=== PATIENT | female | born 1935 | race Caucasian/White ===

== ENCOUNTER 2016-08-14 07:52 | Inpatient (IN) ==
[2016-08-14] MEDS ORDERED: 0.9 % Sodium Chloride 500 ML IVC ONE (07:59)
--- NOTE | 2016-08-14 08:01 | Emergency Department Note ---
START Narrative - START START: I examined this patient and my medical decision-making was reviewed with the SPREADER/PA/Advanced Practice Nurse/Resident Physician. I agree with the documented findings, disposition and treatment plan as described except to the extent set forth below. ED attending note: Patient seen with emergency medicine resident Dr. Donnelly. Please see a copy of his note for details of the H&P, evaluation, management and disposition of this patient. We independently had [id number] contact with the patient Briefly: 80 -year-old female by EMS for "not feeling well. TODAY FOR THE Z-GERRY FOR "BRONCHITIS". PATIENT WAS SLIGHTLY HYPOXIC AT 88%, SHE IS A NONSMOKER. SHE APPEARS NONTOXIC BUT SLIGHTLY ILL. PATIENT GETTING OXYGEN BREATHING TREATMENTS IMAGING AND LAB WORK. DISPOSITION PENDING.
[2016-08-14 08:19] LABS: Basophils % 0.4 %; Eosinophils % 0.1 %; Hemoglobin 13.5 g/dL (11.5-15.4); Immature Granulocytes % 1.5 % (0-4); Lymphocytes # 1.1 K/mcL (0.6-4.6); Lymphocytes % 10.2 %; Mean Corpuscular HGB Conc 34.6 g/dL (31.6-35.5); Mean Corpuscular Hemoglobin 29.4 pg (28.0-33.3); Mean Platelet Volume 10.1 fL (9.4-12.4); Monocytes # 1.4 K/mcL (0.0-1.3); Monocytes % 13.3 %; Neutrophils # 8.1 K/mcL (1.6-8.9); Platelet Count 219 K/mcL (140-400); Red Blood Count 4.59 M/mcL (3.82-4.97); Red Cell Distribution Width 12.7 % (11.5-14.5); Segmented Neutrophils % 74.5 %
--- NOTE | 2016-08-14 08:20 | Emergency Department Note ---
Disposition Clinical Impression: Hypoxia, CAP (community acquired pneumonia) Disposition: Admitted As Inpatient Condition: Fair Referrals: Salo Sarabia Jr, MD [Primary Care Provider] - Forms: Work/School Release, ED Satisfaction Letter Time of Disposition: 11:00 SOB HPI - General Chief Complaint: ED General Medical Stated Complaint: "Don't feel well"/Loss of appetite Time Seen by Provider: 08/14/16 07:53 Source: patient Mode of arrival: EMS Limitations: no limitations Nursing Notes Reviewed: Yes Vital Signs Reviewed: Yes - History of Present Illness 80-year-old female with cough and congestion for 4 days, taking Zithromax and outpatient setting, slightly productive cough. Patient denies any chest pain, 60 out of 10, history of hypertension, hyperlipidemia. Patient is a nonsmoker, no history of COPD or asthma. Generally weak for the last few days, they did call EMS and have her on nasal cannula oxygen saturation was 89%. She denies chest pain abdominal pain, nausea vomiting, diarrhea, constipation. Pt Subjective Complaint: shortness of breath, cough Onset (ago): day(s) (4) Context: recent illness Severity: mild Consistency/Duration: intermittent Improves with: oxygen Worsens with: nothing Known history of: recurrent pneumonia Associated symptoms: Reports: fever, cough, sputum production. Denies: chest pain, pain with inspiration, orthopnea, lower extremity pain, palpitations Treatment prior to arrival: oxygen, other (IVF) Cough present: Yes Cough Description: Voluntary Cough Frequency: Intermittent Sputum production: Yes Sputum Amount: Scant Sputum Color: Clear - Related Data Allergies Allergy/AdvReac Type Severity Reaction Status Date / Time No Known Allergies Allergy Verified 08/14/16 08:02 All systems ED: reviewed and negative except as stated. Constitutional: Reports: as per HPI, fever, chills ENT ED: Reports: congestion. Denies: ear pain, throat pain Cardiovascular: Denies: chest pain, palpitations, dyspnea on exertion Respiratory: Reports: as per HPI, cough, dyspnea, sputum production. Denies: wheezes, hemoptysis, stridor Gastrointestinal: Denies: abdominal pain, nausea, vomiting Genitourinary: Denies: urgency, dysuria Musculoskeletal: Denies: back pain, neck pain Neurological: Denies: headache, weakness Past Medical History - Past Medical History Attestation: Yes The following information was validated with the patient. Source: patient Medical history: Reports: hyperlipidemia, hypertension Physical Exam Constitutional: Elderly female appears in no acute distress, ashen sat 91% on room air HEENT: NCAT, sclera anicteric, PERRLA bilaterally, normal external ears bilaterally, nasal septum nondeviated, average dentition, mucous membranes dry Neck: normal inspection, neck is supple, trachea midline Resp: Coarse breath sounds bilaterally,Right basilar rales CV: RRR, no m/g/r GI: normal inspection, Soft, NTND, BS present Back: normal inspection, no tenderness to palpation Skin: No rashes, skin warm, dry, intact Course Course Narrative: [id number] female suspect possible pneumonia or underlying infectious etiology cough and congestion for 4 days responsive to azithromycin, 2 view chestlabs fluids, reassess. - Reevaluation(s) Reevaluation #1: After ambulation the emergency department, the patient's oxygen saturation droppedon RA to 86% really making her short of breath, patient was placed back on 2 L nasal cannula her sats up to 93%. Given her hypoxia with ambulation, and she is not on oxygen at home and not a smoker or asthmatic, likely this is secondary to her pneumonia, her blood cultures lactate 90 in about X, paged Dr Madera Reevaluation #2: Dr Madera accepts patient for admission, will add a flu swab patient stable at time of ED admission. Time: 10:59 Vital Signs Temperature 97.5 F L 08/14/16 07:53 Pulse Rate 104 08/14/16 07:53 Respiratory Rate 18 08/14/16 07:53 Blood Pressure 185/95 08/14/16 07:53 O2 Sat by Pulse Oximetry 92 L 08/14/16 07:53 Temperature 97.5 F L 08/14/16 07:53 Pulse Rate 85 08/14/16 09:39 Respiratory Rate 18 08/14/16 09:39 Blood Pressure 201/91 08/14/16 09:39 O2 Sat by Pulse Oximetry 96 08/14/16 09:39 Oxygen Delivery Oxygen Delivery Room Air Shortness of Breath/Dyspnea - [facility] Narrative Medical decision making narrative: 80-year-old female admitted for hypoxia, community acquired pneumonia to hospitalist, in fair but stable condition on admission. - Differential Diagnosis Likely: acute exacerbation of chronic obstructive airways disease, congestive heart failure, pneumonia, pulmonary embolism - Medical Records Medical records reviewed: Yes I reviewed the patient's medical records. - Lab Data Lab results reviewed: Yes I reviewed the patient's lab results. Result diagrams: 08/14/16 08:10 08/14/16 08:10 Lab Results 08/14/16 08/14/16 08/14/16 Range/Units 08:10 08:10 08:10 WBC 10.8 (4.3-11.1) K/mcL RBC 4.59 (3.82-4.97) M/mcL Hgb 13.5 (11.5-15.4) g/dL Hct 39.0 (35.3-44.9) % MCV 85.0 (83.0-100.0) fL MCH 29.4 (28.0-33.3) pg MCHC 34.6 (31.6-35.5) g/dL RDW 12.7 (11.5-14.5) % Plt Count 219 (140-400) K/mcL MPV 10.1 (9.4-12.4) fL Immature Gran % 1.5 (0-4) % Seg Neutrophils % 74.5 % Lymphocytes % 10.2 % Monocytes % 13.3 % Eosinophils % 0.1 % Basophils % 0.4 % Neutrophils # 8.1 (1.6-8.9) K/mcL Lymphocytes # 1.1 (0.6-4.6) K/mcL Monocytes # 1.4 H (0.0-1.3) K/mcL Eosinophils # 0.0 (0.0-0.6) K/mcL Basophils # 0.0 (0.0-0.2) K/mcL Sodium 138 (136-145) mEq/L Potassium 3.5 (3.5-4.5) mEq/L Chloride 102 (98-109) mEq/L Carbon Dioxide 24 (19-29) mEq/L BUN 20 (7-20) mg/dL Creatinine 0.77 (0.57-1.11) mg/dL Est GFR ( Amer) > 60 (> 60) Est GFR (Non-Af Amer) > 60 (> 60) BUN/Creatinine Ratio 26 (6-26) Glucose 274 H (70-99) mg/dL Calculated Osmolality 298 (280-300) Calcium 8.8 (8.6-10.8) mg/dL Troponin I 0.03 (0-0.03) ng/mL B-Natriuretic Peptide (0-100) pg/mL 08/14/16 Range/Units 08:10 WBC (4.3-11.1) K/mcL RBC (3.82-4.97) M/mcL Hgb (11.5-15.4) g/dL Hct (35.3-44.9) % MCV (83.0-100.0) fL MCH (28.0-33.3) pg MCHC (31.6-35.5) g/dL RDW (11.5-14.5) % Plt Count (140-400) K/mcL MPV (9.4-12.4) fL Immature Gran % (0-4) % Seg Neutrophils % % Lymphocytes % % Monocytes % % Eosinophils % % Basophils % % Neutrophils # (1.6-8.9) K/mcL Lymphocytes # (0.6-4.6) K/mcL Monocytes # (0.0-1.3) K/mcL Eosinophils # (0.0-0.6) K/mcL Basophils # (0.0-0.2) K/mcL Sodium (136-145) mEq/L Potassium (3.5-4.5) mEq/L Chloride (98-109) mEq/L Carbon Dioxide (19-29) mEq/L BUN (7-20) mg/dL Creatinine (0.57-1.11) mg/dL Est GFR ( Amer) (> 60) Est GFR (Non-Af Amer) (> 60) BUN/Creatinine Ratio (6-26) Glucose (70-99) mg/dL Calculated Osmolality (280-300) Calcium (8.6-10.8) mg/dL Troponin I (0-0.03) ng/mL B-Natriuretic Peptide 126 H (0-100) pg/mL - Radiology Data Radiology results reviewed: Yes I reviewed the patient's radiology results. Chest X-Ray 08/14/16 07:59 IMPRESSION: Findings are compatible with given history of bronchitis. Findings suspicious for superimposed pneumonia at the right upper and lower lobes. Follow-up to resolution recommended. D/ / Tera Salas MD / Tera Salas MD Interpreting Provider: Tera Salas MD - EKG Data EKG attestation: Yes I reviewed and interpreted this EKG. EKG shows normal: Reports: sinus rhythm (87bpm [place] 182 QRS 79 QTc 407) Rate: Reports: normal Rhythm: Reports: NSR [place]/QRS: Reports: normal T wave inversions noted in: Reports: III
[2016-08-14] MEDS ORDERED: Ipratropium/Albuterol Neb 3 ML IH ONE (08:29)
[2016-08-14] MEDS ORDERED: methylPREDNISolone 125 MG/2 ML VIAL IVP ONE (08:30)
[2016-08-14 08:31] LABS: BUN/Creatinine Ratio 26 (6-26); Blood Urea Nitrogen 20 mg/dL (7-20); Calcium 8.8 mg/dL (8.6-10.8); Carbon Dioxide 24 mEq/L (19-29); Chloride 102 mEq/L (98-109); Glucose 274 mg/dL (70-99); Osmolality,Calculated 298 (280-300); Potassium 3.5 mEq/L (3.5-4.5); Sodium 138 mEq/L (136-145); eGFR For African Americans > 60 (> 60); eGFR For Non-African Americans > 60 (> 60)
[2016-08-14] MEDS ORDERED: Azithromycin 500 MG in D5% in Water 250 ML IVPB ONE (10:24)
[2016-08-14] MEDS ORDERED: Naloxone 0.4 MG/ML INJ IVP PRN (12:48)
[2016-08-14] MEDS ORDERED: Albuterol 2.5 MG/3 ML NEBULIZER IH PRN (12:54)
[2016-08-14] MEDS ORDERED: 0.9 % Sodium Chloride 1,000 ML IVC SCH (13:00)
--- NOTE | 2016-08-14 13:02 | Internal Med History&Physical ---
<Alex Madera - Last Filed: 08/14/16 20:09> Internal Medicine - H&P: HPI History of present illness: Ms. Guerrero is a 80 year old female Internal Medicine - H&P: Meds Aspirin [Lo-Dose Aspirin EC] 81 mg PO QPM 08/14/16 [History] Azithromycin [Azithromycin] 250 mg PO AD 08/14/16 [History] Benzonatate [Tessalon] 100 mg PO TID 08/14/16 [History] Biotin 2,500 mcg PO DAILY 08/14/16 [History] Glucosamine HCl/Chondr Fajardo A Na [Cvs Glucosamine-Chondr Tablet] 1 tab PO DAILY [History] Lisinopril/Hydrochlorothiazide [Lisinopril-Hctz 20-25 mg Tab] 1 tab PO DAILY 04/22 [History] Metoprolol XL (24 HR) Succ [Toprol XL] 50 mg PO DAILY 08/14/16 [History] Multivit-Min/Iron/Folic/Lutein [Centrum Silver Women Tablet] 1 tab PO DAILY 04/22 [History] Naproxen [Naproxen] 375 mg PO BID 08/14/16 [History] [place]-3/Dha/Epa/Fish Oil [Fish Oil 1,000 mg Softgel] 1,000 mg PO DAILY 08/14/16 [History] Allergies No Known Allergies Allergy (Verified 08/14/16 08:02) All Systems PM: A 10-system review of systems was performed and is negative for pertinent findings except as documented above in the HPI. - Constitutional Vitals: Temp Pulse Resp BP Pulse Ox 98.0 F 100 16 151/71 95 08/14/16 15:26 08/14/16 15:26 08/14/16 15:26 08/14/16 15:26 08/14/16 15:26 Internal Med - H&P Results - Labs CBC & Chem 7: 08/14/16 08:10 08/14/16 08:10 - Attending Attestation I examined this patient and my medical decision-making was reviewed with the METEOROLOGICAL EQUIPMENT REPAIRER/PA/Advanced Practice Nurse/Resident Physician. I agree with the documented findings, disposition and treatment plan as described except to the extent set forth below. Patient presented with weakness cough and shortness of breath. On exam she is in no acute distress. Heart is regular, lung exam reveals bilateral crackles and rhonchi. Abdomen is soft nontender nondistended Plan: Ceftriaxone and azithromycin for pneumonia, add Mucinex, inhaled albuterol. Continue home meds. <Andria Mcneal - Last Filed: 08/15/16 00:31> Date of Encounter: 08/14/16 Time of Encounter: 12:56 Assessment and Plan (1) CAP (community acquired pneumonia) Current visit: Yes Status: Acute Patient with productive cough, poor appetite, and SMITH. She is satting 86% on room air, improved to 93% on 2L. CXR is suspicious for pneumonia in right upper lobe and right lower lobe along with bronchitis. Ceftriaxone and Azithromycin IVPb daily titrate oxygen to maintain O2 sat > 92% duoneb treatments QID albuterol nebulizer Q2hr PRN IV fluids 0.9NS at 75mL/hr (2) Hypoxia Current visit: Yes Status: Acute Patient satting 86% on room air, improves to 93% on 2L. Secondary to Pneumonia and bronchitis Titrate oxygen to maintain O2 sat > 92% duoneb treatments QID Albuterol nebulizer Q2hr PRN (3) Hypertension Current visit: Yes Status: Acute Patient takes metoprolol and lisinopril/HCTZ at home. She reports she took her blood pressure this morning, but it has been running high since her arrival at 170s/80s-200s/100s. Hydralazine 10mg IVP Q6 hr PRN for SBP > 160 or DBP > 100 Qualifiers: Hypertension type: essential hypertension Qualified Code(s): I10 - Essential (primary) hypertension (4) Hyperglycemia Current visit: Yes Status: Acute Patient denies history of diabetes, but serum glucose was 274. Will get accuchecks and Hbg A1c. May need to initiate sliding scale coverage if blood sugar continues to run high. (5) Bronchitis Current visit: Yes Status: Acute Patient with productive cough, CXR suspicious for pneumonia in RUL and RLL and consistent with bronchitis. Patient given 125mg Solu medrol by ED. Mucinex BID duoneb treatments QID albuterol nebulizer Q2 PRN titrate O2 to maintain oxygen saturation > 92%. (6) DVT prophylaxis Current visit: Yes Status: Acute Ambulate with assistance anti-embolic stockings Lovenox 40mg SQ daily Internal Medicine - H&P: HPI Chief complaint: cough Admitted From: Emergency Dept Plans for Post Hospital Care: Home History of present illness: Ms. Guerrero is a 80 year old female with hypertension and hyperlipidemia who presented to the emergency department today with complaints of cough and congestion. She reports her symptoms started a week ago with a dry cough, the cough kept her up at night. She went to her primary care on Tuesday and was prescribed Zithromax for a diagnosis of bronchitis. She reports her cough started becoming productive of thick sputum, she had a poor appetite, she was fatigued, and short of breath on exertion, which is unusual for her. Her symptoms seem to be getting worse and so she presented to the emergency department this morning. She denies any fever, chills, sweats, body aches. She denies any chest pain, palpitations, headache. She denies any vomiting or diarrhea. Evaluation in the emergency department showed patient was satting 86 % on room air. Her sats improved to 93% on 2 L. blood pressure was elevated. Chest x-ray was suspicious for pneumonia in the right upper lobe and right lower lobe and was consistent with bronchitis. EKG showed normal sinus rhythm. White blood cell count was normal at 10.8. Troponin was normal at 0.03. There she denies a history of diabetes her blood sugar was elevated to 274. On exam patient is alert and oriented, in no acute distress. Heart has regular rate and rhythm. Her lungs had scattered rhonchi with expiratory coarse crackles. Past Med Surg Social Fam HX - Past Medical History Medical history: arthritis, hyperlipidemia, hypertension Psychiatric history: no psych history - Past Surgical History Surgical History: other (bladder sling) - Social History Smoking Status: Never smoker Smokeless Tobacco Status: No Alcohol use: rarely Drug use: none - Family History Father Living Status: Age at : 85 Cause of : [place] Hx Family Cardiac Disorders: Yes ([place]) Hx Family Endocrine Disorder: Yes (DM) Mother Living Status: Age at : 72 Cause of : CVA All Systems PM: A 10-system review of systems was performed and is negative for pertinent findings except as documented above in the HPI. - Constitutional Constitutional: fatigue, no chills, no fever(s), no night sweats - EENT Eyes: no change in vision, no discharge, no pain, no photophobia Ears: no ear discharge, no ear pain, no tinnitus Nose, mouth and throat: hoarseness, nasal congestion, post-nasal drip, no dysphagia, no nasal discharge, no neck pain, no sore throat - Cardiovascular Cardiovascular ROS IM: no chest pain, no diaphoresis, no dyspnea, no lightheadedness, no palpitations, no syncope - Respiratory Respiratory: cough, dyspnea on exertion, chest congestion, excessive phlegm production, change in phlegm color, no dyspnea, no wheezing - Gastrointestinal Gastrointestinal: no abdominal pain, no diarrhea, no hematemesis, no hematochezia, no melena, no nausea, no vomiting - Genitourinary Genitourinary: no change in urinary stream, no dysuria, no flank pain, no hematuria - Musculoskeletal Musculoskeletal ROS IM: no numbness, no tingling - Integumentary Integumentary IM: no rash, no unusual bruising - Neurological Neurological ROS: no confusion, no convulsions, no focal weakness, no numbness, no tingling, no tremor(s) - Hematologic/Lymphatic Hematologic/Lymphatic: no easy bruising - Constitutional Vitals: Temp Pulse Resp BP Pulse Ox 98.4 F 87 15 193/91 95 08/14/16 11:44 08/14/16 11:44 08/14/16 11:44 08/14/16 11:44 08/14/16 11:44 General appearance: Present: A&O X 3, pleasant, no acute distress - Head Head exam: Present: atraumatic, normocephalic - Eye Eye exam: Present: PERRL, conjuntiva pink, sclera anicteric Pupils: Present: PERRL - Neck Neck exam general surgery: Present: supple, trachea midline. Absent: lymphadenopathy - Respiratory Respiratory exam: Present: rales, rhonchi. Absent: accessory muscle use, wheezes - Cardiovascular Cardiovascular exam: Present: RRR, +S1, +S2. Absent: diastolic murmur, gallop, rubs, systolic murmur - GI/Abdominal GI/Abdominal exam: Present: normal bowel sounds, soft, no peritoneal signs. Absent: distended, tenderness - Extremities Exam Extremities exam: Present: warm, radial pulses palpable and symetrical. Absent : calf tenderness, cyanotic, pedal edema - Neurological Exam Neurological exam: Present: CN II-XII intact, oriented X3, no focal deficits. Absent: facial droop, speech deficit - Skin Skin exam: Present: dry, intact Internal Med - H&P Results - Labs CBC & Chem 7: 08/14/16 08:10 08/14/16 08:10 Labs: All Lab Results (24 Hours) 08/14/16 08/14/16 08/14/16 Range/Units 08:10 08:10 08:10 WBC 10.8 (4.3-11.1) K/mcL RBC 4.59 (3.82-4.97) M/mcL Hgb 13.5 (11.5-15.4) g/dL Hct 39.0 (35.3-44.9) % MCV 85.0 (83.0-100.0) fL MCH 29.4 (28.0-33.3) pg MCHC 34.6 (31.6-35.5) g/dL RDW 12.7 (11.5-14.5) % Plt Count 219 (140-400) K/mcL MPV 10.1 (9.4-12.4) fL Immature Gran % 1.5 (0-4) % Seg Neutrophils % 74.5 % Lymphocytes % 10.2 % Monocytes % 13.3 % Eosinophils % 0.1 % Basophils % 0.4 % Neutrophils # 8.1 (1.6-8.9) K/mcL Lymphocytes # 1.1 (0.6-4.6) K/mcL Monocytes # 1.4 H (0.0-1.3) K/mcL Eosinophils # 0.0 (0.0-0.6) K/mcL Basophils # 0.0 (0.0-0.2) K/mcL Sodium 138 (136-145) mEq/L Potassium 3.5 (3.5-4.5) mEq/L Chloride 102 (98-109) mEq/L Carbon Dioxide 24 (19-29) mEq/L BUN 20 (7-20) mg/dL Creatinine 0.77 (0.57-1.11) mg/dL Est GFR ( Amer) > 60 (> 60) Est GFR (Non-Af Amer) > 60 (> 60) BUN/Creatinine Ratio 26 (6-26) Glucose 274 H (70-99) mg/dL Calculated Osmolality 298 (280-300) Lactic Acid (0.5-2.2) mmol/L Calcium 8.8 (8.6-10.8) mg/dL Troponin I 0.03 (0-0.03) ng/mL B-Natriuretic Peptide (0-100) pg/mL 08/14/16 08/14/16 Range/Units 08:10 10:46 WBC (4.3-11.1) K/mcL RBC (3.82-4.97) M/mcL Hgb (11.5-15.4) g/dL Hct (35.3-44.9) % MCV (83.0-100.0) fL MCH (28.0-33.3) pg MCHC (31.6-35.5) g/dL RDW (11.5-14.5) % Plt Count (140-400) K/mcL MPV (9.4-12.4) fL Immature Gran % (0-4) % Seg Neutrophils % % Lymphocytes % % Monocytes % % Eosinophils % % Basophils % % Neutrophils # (1.6-8.9) K/mcL Lymphocytes # (0.6-4.6) K/mcL Monocytes # (0.0-1.3) K/mcL Eosinophils # (0.0-0.6) K/mcL Basophils # (0.0-0.2) K/mcL Sodium (136-145) mEq/L Potassium (3.5-4.5) mEq/L Chloride (98-109) mEq/L Carbon Dioxide (19-29) mEq/L BUN (7-20) mg/dL Creatinine (0.57-1.11) mg/dL Est GFR ( Amer) (> 60) Est GFR (Non-Af Amer) (> 60) BUN/Creatinine Ratio (6-26) Glucose (70-99) mg/dL Calculated Osmolality (280-300) Lactic Acid 1.6 (0.5-2.2) mmol/L Calcium (8.6-10.8) mg/dL Troponin I (0-0.03) ng/mL B-Natriuretic Peptide 126 H (0-100) pg/mL
[2016-08-14] MEDS: Azithromycin 500 MG in D5% in Water 250 ML IVPB SCH (13:17)
[2016-08-14 14:22] LABS: Hemoglobin A1C 7.3 %
[2016-08-14] MEDS ORDERED: *HR* Dextrose 50 % in Water (Syg) 50 ML SYRINGE IVP PRN (14:33)
[2016-08-14] MEDS ORDERED: Dextrose Gel 15 GM PO PRN ×2 (14:33)
[2016-08-14] MEDS ORDERED: D5% in Water 1,000 ML IV PRN (14:33)
[2016-08-14] MEDS: Ipratropium/Albuterol Neb 3 ML IH SCH ×3 (14:44→23:54)
[2016-08-14] MEDS ORDERED: Benzonatate 100 MG CAPSULE PO SCH (15:00)
[2016-08-14] MEDS: Insulin LISPRO 300 UNITS/3 ML VIAL SQ SCH ×2 (17:19→23:00)
[2016-08-14] MEDS: Aspirin Enteric Coated 81 MG Tablet PO SCH (17:23)
[2016-08-15] MEDS: Ipratropium/Albuterol Neb 3 ML IH SCH ×4 (04:57→22:43)
[2016-08-15] MEDS: *HR* Enoxaparin 40 MG/0.4 ML SYRINGE SQ SCH (05:30)
[2016-08-15 06:47] LABS: BUN/Creatinine Ratio 26 (6-26); Blood Urea Nitrogen 22 mg/dL (7-20); Calcium 8.7 mg/dL (8.6-10.8); Carbon Dioxide 20 mEq/L (19-29); Chloride 103 mEq/L (98-109); Glucose 290 mg/dL (70-99); Osmolality,Calculated 302 (280-300); Sodium 139 mEq/L (136-145); eGFR For African Americans > 60 (> 60); eGFR For Non-African Americans > 60 (> 60)
[2016-08-15 07:05] LABS: Basophils # 0.1 K/mcL (0.0-0.2); Basophils % 0.6 %; Hematocrit 39.9 % (35.3-44.9); Hemoglobin 13.7 g/dL (11.5-15.4); Immature Granulocytes % 4.9 % (0-4); Lymphocytes # 1.7 K/mcL (0.6-4.6); Mean Corpuscular HGB Conc 34.3 g/dL (31.6-35.5); Mean Corpuscular Hemoglobin 29.8 pg (28.0-33.3); Mean Corpuscular Volume 86.9 fL (83.0-100.0); Mean Platelet Volume 11.2 fL (9.4-12.4); Monocytes # 2.1 K/mcL (0.0-1.3); Neutrophils # 14.1 K/mcL (1.6-8.9); Platelet Count 282 K/mcL (140-400); Red Blood Count 4.59 M/mcL (3.82-4.97); Segmented Neutrophils % 74.5 %
[2016-08-15] MEDS: Insulin LISPRO 300 UNITS/3 ML VIAL SQ SCH ×6 (08:25→20:24)
[2016-08-15] MEDS ORDERED: Metoprolol XL (24 HR) Succ 50 MG TAB.ER.24H PO SCH (09:00)
--- NOTE | 2016-08-15 11:16 | Internal Med Progress Note ---
Date of Encounter: 08/15/16 Time of Encounter: 10:50 - Assessment and plan (1) Acute respiratory failure with hypoxia Current Visit: Yes Status: Acute Assessment and plan: secondary to pneumonia O2 Sat on admission 86% on room air, improves wih O2 supplementation Patient with jitteriness from albuterol d/c Alb 2hr prn (2) Hypokalemia Current Visit: Yes Status: Acute Assessment and plan: Replaced Monitor Chem (3) Leukocytosis Current Visit: Yes Status: Acute Assessment and plan: Possibly from solumedrol that patient received She is afebrile and clinically improving Continue management for pneumonia Rpt WBC a.m Qualifiers: Leukocytosis type: unspecified Qualified Code(s): D72.829 - Elevated white blood cell count, unspecified (4) CAP (community acquired pneumonia) Current Visit: Yes Status: Acute Assessment and plan: Possibly from strept No recent admission, no invasive procedures Day 2 Cef/Azihthro, continue same Obtain and send sputum for culture Continue O2 supplement (5) DVT prophylaxis Current Visit: Yes Status: Acute Assessment and plan: Lovenox SQ, continue (6) Hyperglycemia Current Visit: Yes Status: Acute (7) Hypertension Current Visit: Yes Status: Chronic Assessment and plan: Uncontrolled Increase Toprol to 75mg po daily Continue Lisinopril D/C IVF Continue to monitor Qualifiers: Hypertension type: essential hypertension Qualified Code(s): I10 - Essential (primary) hypertension - Subjective Interval history: 80 Y/O F with PMH of HTN, DM, HLD She is on admission for acute hypoxic respiratory failure secondary to Pneumonia , organism unknown, possibly community acquired pneumonia She is [id number] Seen at bedside with daughter She reports feeling improvement in cough and difficulty breathing She denies new complains Labs and Imaging reviewed - Constitutional Vitals: Temp Pulse Resp BP Pulse Ox 98.4 F 121 15 165/92 97 08/15/16 07:02 08/15/16 07:02 08/15/16 09:48 08/15/16 07:02 08/15/16 09:48 General appearance: Present: A&O X 3, pleasant, no acute distress - Head Head exam: Present: atraumatic, normocephalic - Eye Eye exam: Present: PERRL, conjuntiva pink, sclera anicteric Pupils: Present: PERRL - Neck Neck exam general surgery: Present: supple, trachea midline. Absent: lymphadenopathy - Respiratory Respiratory exam: Present: CTAB. Absent: accessory muscle use, rales, rhonchi, wheezes - Cardiovascular Cardiovascular exam: Present: RRR, +S1, +S2. Absent: diastolic murmur, gallop, rubs, systolic murmur - GI/Abdominal GI/Abdominal exam: Present: normal bowel sounds, soft, no peritoneal signs. Absent: distended, tenderness - Extremities Exam Extremities exam: Present: warm, radial pulses palpable and symetrical. Absent : calf tenderness, cyanotic, pedal edema - Neurological Exam Neurological exam: Present: CN II-XII intact, oriented X3, no focal deficits. Absent: pronater drift, facial droop, speech deficit - Skin Skin exam: Present: dry, intact Internal Medicine: Result - Labs CBC & Chem 7: 08/15/16 05:31 08/15/16 05:31 Labs: Short CBC 08/15/16 Range/Units 05:31 WBC 18.9 H D (4.3-11.1) K/mcL Hgb 13.7 (11.5-15.4) g/dL Hct 39.9 (35.3-44.9) % Plt Count 282 (140-400) K/mcL Neutrophils # 14.1 H (1.6-8.9) K/mcL BMP 08/15/16 05:31 Sodium 139 Potassium 3.0 L Chloride 103 Carbon Dioxide 20 BUN 22 H Creatinine 0.84 Glucose 290 H Calcium 8.7 - VTE Documentation of Mechanical Device: Graduated compression elastic hosiery Consult Discharge Plan - Plan Referrals: Salo Sarabia Jr, MD [Primary Care Provider] -
[2016-08-15] MEDS ORDERED: Metoprolol XL (24 HR) Succ 25 MG TAB.ER.24H PO ONE (11:39)
[2016-08-15] MEDS: Metoprolol XL (24 HR) Succ 50 MG TAB.ER.24H PO SCH (11:59)
[2016-08-15] MEDS: Azithromycin 500 MG in D5% in Water 250 ML IVPB SCH (13:29)
[2016-08-15] MEDS: Aspirin Enteric Coated 81 MG Tablet PO SCH (17:04)
[2016-08-15] MEDS: Insulin DETEMIR 100 UNIT/ML X5UNITS SQ SCH (20:23)
[2016-08-16] MEDS: Ipratropium/Albuterol Neb 3 ML IH SCH ×4 (04:36→22:06)
[2016-08-16] MEDS: *HR* Enoxaparin 40 MG/0.4 ML SYRINGE SQ SCH (04:55)
[2016-08-16 05:42] LABS: Basophils # 0.1 K/mcL (0.0-0.2); Basophils % 0.6 %; Eosinophils % 0.1 %; Hematocrit 40.3 % (35.3-44.9); Hemoglobin 13.6 g/dL (11.5-15.4); Immature Granulocytes % 4.7 % (0-4); Lymphocytes # 1.6 K/mcL (0.6-4.6); Lymphocytes % 11.6 %; Mean Corpuscular HGB Conc 33.7 g/dL (31.6-35.5); Mean Corpuscular Hemoglobin 29.1 pg (28.0-33.3); Mean Corpuscular Volume 86.3 fL (83.0-100.0); Mean Platelet Volume 10.6 fL (9.4-12.4); Monocytes # 1.7 K/mcL (0.0-1.3); Monocytes % 12.5 %; Neutrophils # 9.5 K/mcL (1.6-8.9); Platelet Count 268 K/mcL (140-400); Red Blood Count 4.67 M/mcL (3.82-4.97); Red Cell Distribution Width 13.2 % (11.5-14.5); Segmented Neutrophils % 70.5 %
[2016-08-16 06:01] LABS: BUN/Creatinine Ratio 29 (6-26); Blood Urea Nitrogen 21 mg/dL (7-20); Calcium 8.9 mg/dL (8.6-10.8); Carbon Dioxide 26 mEq/L (19-29); Chloride 106 mEq/L (98-109); Glucose 112 mg/dL (70-99); Osmolality,Calculated 292 (280-300); Potassium 3.9 mEq/L (3.5-4.5); Sodium 139 mEq/L (136-145); eGFR For African Americans > 60 (> 60); eGFR For Non-African Americans > 60 (> 60)
[2016-08-16] MEDS: Insulin LISPRO 300 UNITS/3 ML VIAL SQ SCH ×7 (08:41→21:34)
[2016-08-16] MEDS: Metoprolol XL (24 HR) Succ 50 MG TAB.ER.24H PO SCH (08:45)
[2016-08-16 09:53] LABS: Acinetobacter baumannii by PCR Not Detected (Not Detect); Candida albicans by PCR Not Detected (Not Detect); Candida glabrata by PCR Not Detected (Not Detect); Candida krusei by PCR Not Detected (Not Detect); Candida parapsilosis by PCR Not Detected (Not Detect); Candida tropicalis by PCR Not Detected (Not Detect); Enterococcus by PCR Not Detected (Not Detect); Escherichia coli by PCR Not Detected (Not Detect); Klebsiella oxytoca by PCR Not Detected (Not Detect); Klebsiella pneumoniae by PCR Not Detected (Not Detect); Pseudomonas aeruginosa by PCR Not Detected (Not Detect); Serratia marcescens by PCR Not Detected (Not Detect); Staphylococcus aureus by PCR ***DETECTED*** (Not Detect); Streptococcus agalactiae(B)PCR Not Detected (Not Detect); Streptococcus by PCR Not Detected (Not Detect); Streptococcus pneumoniae PCR Not Detected (Not Detect); Streptococcus pyogenes (A) PCR Not Detected (Not Detect); blaKPC Carbapenem-Resist Gene Not Detected (Not Detect); mecA Methicillin-Resist Gene Not Detected (Not Detect); vanA/B Vancomycin-Resist Genes Not Detected (Not Detect)
--- NOTE | 2016-08-16 10:21 | Internal Med Progress Note ---
<Ofe Beatty - Last Filed: 08/16/16 15:19> Date of Encounter: 08/16/16 Time of Encounter: 09:45 - Assessment and plan (1) Acute respiratory failure with hypoxia Current Visit: Yes Status: Acute Assessment and plan: - Likely secondary to pneumonia. - Improved as her O2 sat is 95% on 2L via nasal cannula - Continue supplemental oxygen and monitoring. (2) CAP (community acquired pneumonia) Current Visit: Yes Status: Acute Assessment and plan: - CXR on admission suggests possible right upper and lower lobes pneumonia. - Sputum gram stain found many GPC and culture is pending. - The S. aureus found in 1 out of 2 blood cultures is likely contamination. Will obtain two more blood cultures for further evaluation. - Continue ceftriaxone and azithromycin for now given clinical improvement on current antibiotic regiment. - Check urine antigens for Strep. pneumoniae and Legionella. Consider to discontinue azithromycin if Legionella negative. - Continue supplemental oxygen. (3) Hypertension Current Visit: Yes Status: Chronic Assessment and plan: - Blood pressure is currently 152/83. - Currently on Tropol XL 75 mg PO daily along with home dose of Lisinopril-HCTZ. - Continue to monitor. Consider to increase Tropol XL to 100 mg if BP remains elevated. Qualifiers: Hypertension type: essential hypertension Qualified Code(s): I10 - Essential (primary) hypertension (4) Diabetes type 2, uncontrolled Current Visit: Yes Status: Chronic Assessment and plan: - Newly diagnosed diabetes given Hgb A1C at 7.3. - Continue on basal and sliding scale insulin. - Will have patient follow up with her PCP after discharge for further outpatient management. Qualifiers: Diabetes mellitus complication status: with unspecified complications Diabetes mellitus mcc insulin use: without long term care administrator use Qualified Code( s): E11.8 - Type 2 diabetes mellitus with unspecified complications; E11.65 - Type 2 diabetes mellitus with hyperglycemia (5) Leukocytosis Current Visit: Yes Status: Acute Assessment and plan: - Improved as WBC dropped to 13.4 this morning. Patient is receiving antibiotics for pneumonia. - Patient is improving clinically. Continue to monitor. Qualifiers: Leukocytosis type: unspecified Qualified Code(s): D72.829 - Elevated white blood cell count, unspecified (6) Hypokalemia Current Visit: Yes Status: Resolved Assessment and plan: - Resolved as K at 3.9 today. - Continue to monitor. (7) DVT prophylaxis Current Visit: Yes Status: Acute Assessment and plan: - Continue Lovenox SQ. - Subjective Interval history: Patient states that she is feeling a little better than yesterday. States that her cough is usually worse at night but last night it was much improved and she was able to sleep better than she has the last week. She denies any new or worsening symptoms. Patient denies fever,chills, chest pain, abdominal pain, N/ V/D, urinary symptoms, calf tenderness. Patient was resting comfortably in bed in no acute distress. Patient had normal heart sounds and her lungs had diffuse crackles heard bilaterally. Patient's O2 is 95% on 2L. - Constitutional Vitals: Temp Pulse Resp BP Pulse Ox 98.2 F 113 16 152/83 95 08/16/16 06:57 08/16/16 06:57 08/16/16 06:57 08/16/16 06:57 08/16/16 09:00 General appearance: Present: A&O X 3, pleasant, no acute distress - Head Head exam: Present: atraumatic, normocephalic - Neck Neck exam general surgery: Present: supple, trachea midline. Absent: lymphadenopathy - Respiratory Respiratory exam: Present: rhonchi (diffuse crackles bilaterally, R > L). Absent: accessory muscle use - Cardiovascular Cardiovascular exam: Present: +S1, +S2, tachycardia. Absent: diastolic murmur, systolic murmur - GI/Abdominal GI/Abdominal exam: Present: soft. Absent: tenderness - Psychiatric Psychiatric exam: Present: normal affect, normal mood - Skin Skin exam: Present: dry, intact Internal Medicine: Result - Labs CBC & Chem 7: 08/16/16 05:14 08/16/16 05:14 Labs: Short CBC 08/16/16 Range/Units 05:14 WBC 13.4 H (4.3-11.1) K/mcL Hgb 13.6 (11.5-15.4) g/dL Hct 40.3 (35.3-44.9) % Plt Count 268 (140-400) K/mcL Neutrophils # 9.5 H (1.6-8.9) K/mcL BMP 08/16/16 05:14 Sodium 139 Potassium 3.9 Chloride 106 Carbon Dioxide 26 BUN 21 H Creatinine 0.73 Glucose 112 H Calcium 8.9 - VTE Documentation of Mechanical Device: Graduated compression elastic hosiery Consult Discharge Plan - Plan Referrals: Salo Sarabia Jr, MD [Primary Care Provider] - <Ted North - Last Filed: 08/16/16 16:27> - Assessment and plan (1) Acute respiratory failure with hypoxia Current Visit: Yes Status: Acute (2) Hypokalemia Current Visit: Yes Status: Resolved (3) Leukocytosis Current Visit: Yes Status: Acute Qualifiers: Leukocytosis type: unspecified Qualified Code(s): D72.829 - Elevated white blood cell count, unspecified (4) CAP (community acquired pneumonia) Current Visit: Yes Status: Acute (5) DVT prophylaxis Current Visit: Yes Status: Acute (6) Hyperglycemia Current Visit: Yes Status: Acute (7) Hypertension Current Visit: Yes Status: Chronic Qualifiers: Hypertension type: essential hypertension Qualified Code(s): I10 - Essential (primary) hypertension - Constitutional Vitals: Temp Pulse Resp BP Pulse Ox 98.2 F 79 16 145/67 93 L 08/16/16 11:23 08/16/16 11:23 08/16/16 11:23 08/16/16 11:23 08/16/16 11:23 Internal Medicine: Result - Labs CBC & Chem 7: 08/16/16 05:14 08/16/16 05:14 Labs: Short CBC 08/16/16 Range/Units 05:14 WBC 13.4 H (4.3-11.1) K/mcL Hgb 13.6 (11.5-15.4) g/dL Hct 40.3 (35.3-44.9) % Plt Count 268 (140-400) K/mcL Neutrophils # 9.5 H (1.6-8.9) K/mcL BMP 08/16/16 05:14 Sodium 139 Potassium 3.9 Chloride 106 Carbon Dioxide 26 BUN 21 H Creatinine 0.73 Glucose 112 H Calcium 8.9 - Attending Attestation I examined this patient and my medical decision-making was reviewed with the FIRE ALARM INSTALLER/PA/Advanced Practice Nurse/Resident Physician. I agree with the documented findings, disposition and treatment plan as described except to the extent set forth below. 80 Y/O F on admission for management of acute hypoxic respiratory failure secondary to Pneumonia, organism unknown, possibly community acquired pneumonia Seen at bedside today Has no new complains Physical exam significant for elevated BP and hypoxia, chest with RUL, RLL rhonchi Resp panel with Staph aureus, Blood culture done 08/14/16 with GPC in one bottle , sputum culture also with GPC Day 3 on Ceftriaxone and Azithromycin , patient has clinical improvement Continue same antibiotics and repeat blood cultures, follow sensitivity of culture Adjust BP meds Rest of details as in resident's documentation...
[2016-08-16] MEDS: Azithromycin 500 MG in D5% in Water 250 ML IVPB SCH (14:40)
--- NOTE | 2016-08-16 15:18 | Electrocardiograph Report ---
[place] [address] Test Date: 2016-08-14 Pat Name: Yeninfer Guerrero Department: 103 Room: 2NE18 Gender: F Military Nurse: : 1935 Requested By: Douglas Donnelly Order Number: [id number] Reading MD: Inderjit Pack Measurements Intervals [place] Rate: 87 P: 30 SC: 182 QRS: -12 QRSD: 79 T: 12 QT: 363 QTc: 407 Interpretive Statements SINUS RHYTHM POSSIBLE LEFT ATRIAL ENLARGEMENT POSSIBLE LEFT VENTRICULAR HYPERTROPHY POSSIBLE ANTERIOR MYOCARDIAL INFARCTION, PROBABLY OLD Electronically Signed On 08-16-2016 15:17:16 EDT by Inderjit Pack
[2016-08-16] MEDS: Aspirin Enteric Coated 81 MG Tablet PO SCH (18:23)
[2016-08-16] MEDS: Insulin DETEMIR 100 UNIT/ML X5UNITS SQ SCH (20:24)
[2016-08-17] MEDS ORDERED: Acetaminophen 325 MG TABLET PO ONE (02:44)
[2016-08-17] MEDS: Ipratropium/Albuterol Neb 3 ML IH SCH ×4 (04:44→22:16)
[2016-08-17] MEDS: *HR* Enoxaparin 40 MG/0.4 ML SYRINGE SQ SCH (05:40)
[2016-08-17 06:40] LABS: Basophils # 0.1 K/mcL (0.0-0.2); Basophils % 0.3 %; Eosinophils % 0.3 %; Hematocrit 39.6 % (35.3-44.9); Hemoglobin 13.6 g/dL (11.5-15.4); Immature Granulocytes % 2.5 % (0-4); Immature Platelets 5.7 % (1.1-6.1); Lymphocytes # 1.4 K/mcL (0.6-4.6); Lymphocytes % 9.5 %; Mean Corpuscular HGB Conc 34.3 g/dL (31.6-35.5); Mean Corpuscular Hemoglobin 29.2 pg (28.0-33.3); Mean Corpuscular Volume 85.2 fL (83.0-100.0); Mean Platelet Volume 10.3 fL (9.4-12.4); Monocytes # 0.9 K/mcL (0.0-1.3); Monocytes % 6.2 %; Neutrophils # 11.8 K/mcL (1.6-8.9); Platelet Count 283 K/mcL (140-400); Red Blood Count 4.65 M/mcL (3.82-4.97); Red Cell Distribution Width 13.2 % (11.5-14.5); Segmented Neutrophils % 81.2 %
[2016-08-17 07:00] LABS: BUN/Creatinine Ratio 28 (6-26); Blood Urea Nitrogen 18 mg/dL (7-20); Calcium 8.5 mg/dL (8.6-10.8); Carbon Dioxide 25 mEq/L (19-29); Chloride 103 mEq/L (98-109); Glucose 85 mg/dL (70-99); Osmolality,Calculated 287 (280-300); Potassium 3.6 mEq/L (3.5-4.5); Sodium 138 mEq/L (136-145); eGFR For African Americans > 60 (> 60); eGFR For Non-African Americans > 60 (> 60)
[2016-08-17] MEDS ORDERED: Vancomycin 1,000 MG in D5% in Water 250 ML IVPB ONE (07:39)
[2016-08-17] MEDS ORDERED: Aminoglycoside Consult 1 EACH MC ONE (07:43)
[2016-08-17] MEDS: Insulin LISPRO 300 UNITS/3 ML VIAL SQ SCH ×7 (07:58→21:21)
[2016-08-17] MEDS: Metoprolol XL (24 HR) Succ 50 MG TAB.ER.24H PO SCH ×2 (08:40→08:51)
--- NOTE | 2016-08-17 10:06 | Internal Med Progress Note ---
<Ofe Beatty - Last Filed: 08/17/16 13:21> Date of Encounter: 08/17/16 Time of Encounter: 08:30 - Assessment and plan (1) CAP (community acquired pneumonia) Current Visit: Yes Status: Acute Assessment and plan: - CXR on admission suggests possible right upper and lower lobes pneumonia. - Negative urine antigens for Strep. pneumoniae and Legionella - Sputum gram stain found many GPC and culture preliminarily grew GPC, probably Staph. - One out of two blood cultures on admission preliminarily grew S. aureus. Sensitivity pending. - Two more blood cultures from 08/16 pending. - Concern of worsening infection on current antibiotic regimen given the worsening leukocytosis and tachycardia. - Will switch from ceftriaxone/azithromycin to vancomycin while waiting for final sensitivity results. - Will obtain TTE for now to evaluate for endocarditis. - Continue supplemental oxygen. (2) Acute respiratory failure with hypoxia Current Visit: Yes Status: Acute Assessment and plan: - Oxygen saturation 86% in ED. - Likely secondary to pneumonia. - Improved as her O2 sat is 95% on 2L via nasal cannula - Continue supplemental oxygen and monitoring. (3) Leukocytosis Current Visit: Yes Status: Acute Assessment and plan: - WBC increased from 13.4 to 14.5. - Concern of worsening infection on current antibiotic regimen given the worsening leukocytosis and tachycardia. - Will switch from ceftriaxone/azithromycin to vancomycin. - Continue to monitor. Qualifiers: Leukocytosis type: unspecified Qualified Code(s): D72.829 - Elevated white blood cell count, unspecified (4) Hypertension Current Visit: Yes Status: Chronic Assessment and plan: - Blood pressure 156/93 this morning. - Will increase Tropol XL to 100 mg PO daily. - Continue to monitor. Qualifiers: Hypertension type: essential hypertension Qualified Code(s): I10 - Essential (primary) hypertension (5) Diabetes type 2, uncontrolled Current Visit: Yes Status: Chronic Assessment and plan: - Newly diagnosed diabetes given Hgb A1C at 7.3. - Continue on basal and sliding scale insulin. - Will have patient follow up with her PCP after discharge for further outpatient management. Qualifiers: Diabetes mellitus complication status: with unspecified complications Diabetes mellitus intermediate frame tender insulin use: without mcc use Qualified Code( s): E11.8 - Type 2 diabetes mellitus with unspecified complications; E11.65 - Type 2 diabetes mellitus with hyperglycemia (6) DVT prophylaxis Current Visit: Yes Status: Acute Assessment and plan: - Continue Lovenox SQ. - Subjective Interval history: No significant event noted overnight. Patient was seen and examined this morning. Patient reports breathing better and less cough with no sputum production. Patient denies fever, chills, nausea, vomiting, diarrhea. - Constitutional Vitals: Temp Pulse Resp BP Pulse Ox 98.1 F 111 18 156/93 95 08/17/16 07:48 08/17/16 07:48 08/17/16 07:48 08/17/16 07:48 08/17/16 07:48 General appearance: Present: A&O X 3, pleasant, no acute distress - Head Head exam: Present: atraumatic, normocephalic - Eye Eye exam: Present: PERRL, conjuntiva pink, sclera anicteric - Neck Neck exam general surgery: Present: supple, trachea midline. Absent: lymphadenopathy - Respiratory Respiratory exam: Present: rales (Mostly at right lower base.). Absent: accessory muscle use, rhonchi, wheezes - Cardiovascular Cardiovascular exam: Present: +S1, +S2, tachycardia. Absent: diastolic murmur, gallop, rubs, systolic murmur - GI/Abdominal GI/Abdominal exam: Present: normal bowel sounds, soft, no peritoneal signs. Absent: distended, tenderness - Extremities Exam Extremities exam: Present: warm, radial pulses palpable and symetrical. Absent : calf tenderness, cyanotic, pedal edema - Neurological Exam Neurological exam: Present: CN II-XII intact, oriented X3, no focal deficits. Absent: pronater drift, facial droop, speech deficit - Skin Skin exam: Present: dry, intact. Absent: rash Internal Medicine: Result - Labs CBC & Chem 7: 08/17/16 05:20 08/17/16 05:20 Labs: Short CBC 08/17/16 Range/Units 05:20 WBC 14.5 H (4.3-11.1) K/mcL Hgb 13.6 (11.5-15.4) g/dL Hct 39.6 (35.3-44.9) % Plt Count 283 (140-400) K/mcL Neutrophils # 11.8 H (1.6-8.9) K/mcL BMP 08/17/16 05:20 Sodium 138 Potassium 3.6 Chloride 103 Carbon Dioxide 25 BUN 18 Creatinine 0.65 Glucose 85 Calcium 8.5 L - VTE Documentation of Mechanical Device: Graduated compression elastic hosiery Consult Discharge Plan - Plan Referrals: Salo Sarabia Jr, MD [Primary Care Provider] - <Ted North - Last Filed: 08/17/16 14:28> - Assessment and plan (1) Acute respiratory failure with hypoxia Current Visit: Yes Status: Acute (2) Hypokalemia Current Visit: Yes Status: Resolved (3) Leukocytosis Current Visit: Yes Status: Acute Qualifiers: Leukocytosis type: unspecified Qualified Code(s): D72.829 - Elevated white blood cell count, unspecified (4) CAP (community acquired pneumonia) Current Visit: Yes Status: Acute (5) DVT prophylaxis Current Visit: Yes Status: Acute (6) Hyperglycemia Current Visit: Yes Status: Acute (7) Hypertension Current Visit: Yes Status: Chronic Qualifiers: Hypertension type: essential hypertension Qualified Code(s): I10 - Essential (primary) hypertension - Constitutional Vitals: Temp Pulse Resp BP Pulse Ox 98.1 F 105 18 152/93 94 L 08/17/16 07:48 08/17/16 11:26 08/17/16 11:26 08/17/16 11:26 08/17/16 11:26 Internal Medicine: Result - Labs CBC & Chem 7: 08/17/16 05:20 08/17/16 05:20 Labs: Short CBC 08/17/16 Range/Units 05:20 WBC 14.5 H (4.3-11.1) K/mcL Hgb 13.6 (11.5-15.4) g/dL Hct 39.6 (35.3-44.9) % Plt Count 283 (140-400) K/mcL Neutrophils # 11.8 H (1.6-8.9) K/mcL BMP 08/17/16 05:20 Sodium 138 Potassium 3.6 Chloride 103 Carbon Dioxide 25 BUN 18 Creatinine 0.65 Glucose 85 Calcium 8.5 L - Attending Attestation I examined this patient and my medical decision-making was reviewed with the OPERA SINGER/PA/Advanced Practice Nurse/Resident Physician. I agree with the documented findings, disposition and treatment plan as described except to the extent set forth below. 80 Y/O F on admission for management of acute hypoxic respiratory failure secondary to Pneumonia, organism unknown, possibly community acquired pneumonia Seen at bedside today with her daughter When asked how she is doing today, she reports "so..so" Physical exam significant for elevated BP and hypoxia, chest with RUL, RLL rhonchi Labs reviewed: Resp panel with Staph aureus, Sputum culture and Blood culture done 08/14/16 with staph aureus Leukocytosis slightly worsened today Day 4 on Ceftriaxone and Azithromycin Will d/c Cef/Azithro due to culture reports Started on Vancomycin, pharmacy to dose, Follow final culture report, monitor for toxicity High risk patient due to vancomycin which needs monitoring Increase Toprol to 100mg daily, obtain EKG, EKG on admission is sinus rhythm Obtain ECHO to r/o IE due to staph bacteremia Plan of care is discussed with patient and her daughter at the bedside , verbalized understanding Rest of details as in resident's documentation...
[2016-08-17] MEDS ORDERED: Vancomycin 1,000 MG in D5% in Water 250 ML IVPB SCH ×2 (15:00→21:00)
[2016-08-17] MEDS: Aspirin Enteric Coated 81 MG Tablet PO SCH (17:27)
[2016-08-17] MEDS: Insulin DETEMIR 100 UNIT/ML X5UNITS SQ SCH (23:23)
[2016-08-18] MEDS: Ipratropium/Albuterol Neb 3 ML IH SCH ×4 (04:01→22:29)
[2016-08-18 06:04] LABS: Basophils % 0.3 %; Eosinophils # 0.1 K/mcL (0.0-0.6); Eosinophils % 0.5 %; Hemoglobin 12.8 g/dL (11.5-15.4); Immature Granulocytes % 1.6 % (0-4); Lymphocytes # 1.1 K/mcL (0.6-4.6); Lymphocytes % 7.8 %; Mean Corpuscular HGB Conc 34.6 g/dL (31.6-35.5); Mean Corpuscular Hemoglobin 29.7 pg (28.0-33.3); Mean Corpuscular Volume 85.8 fL (83.0-100.0); Mean Platelet Volume 10.8 fL (9.4-12.4); Monocytes # 0.7 K/mcL (0.0-1.3); Monocytes % 4.8 %; Neutrophils # 12.4 K/mcL (1.6-8.9); Platelet Count 290 K/mcL (140-400); Red Blood Count 4.31 M/mcL (3.82-4.97)
[2016-08-18 06:16] LABS: BUN/Creatinine Ratio 27 (6-26); Blood Urea Nitrogen 18 mg/dL (7-20); Calcium 8.3 mg/dL (8.6-10.8); Carbon Dioxide 27 mEq/L (19-29); Chloride 102 mEq/L (98-109); Glucose 124 mg/dL (70-99); Osmolality,Calculated 291 (280-300); Potassium 3.6 mEq/L (3.5-4.5); Sodium 139 mEq/L (136-145); eGFR For African Americans > 60 (> 60); eGFR For Non-African Americans > 60 (> 60)
[2016-08-18] MEDS: *HR* Enoxaparin 40 MG/0.4 ML SYRINGE SQ SCH (06:28)
[2016-08-18] MEDS: Insulin LISPRO 300 UNITS/3 ML VIAL SQ SCH ×7 (08:35→21:17)
[2016-08-18] MEDS: Metoprolol XL (24 HR) Succ 50 MG TAB.ER.24H PO SCH (08:37)
[2016-08-18] MEDS ORDERED: Vancomycin 1,000 MG in D5% in Water 250 ML IVPB SCH (09:00)
--- NOTE | 2016-08-18 10:00 | ECHO - Doppler Report ---
Echocardiogram Name: Yennifer Guerrero Date of Study: 08/17/2016 Date: 1935 Ht: 66.0 in Medical Record#: [id number] Age: 80 Wt: 157.0 lb Gender: Female BSA: 1.8 Order #: [id number] Location: [facility] Room #: 2NE18 Reading Physician: Courtney Ram DO Harbour Master: Lizzy Henriquez Ordering Physician: Ofe Beatty DO Primary Physician: Salo Sarabia MD Indications: Evaluate for endocarditis Impressions: Technically challenging study with suboptimal imaging due to respiratory artifact. LVEF 55%. Not all myocardial segments were well visualized. Normal left ventricular size and systolic function. There is evidence of mild diastolic dysfunction of the left ventricle. RV is not well evaluated. Not all valves were well visualized. No Doppler evidence of significant valve dysfunction. No pulmonary hypertension. Left Ventricular Wall Motion: Rest Echo Findings The apex, apical inferior, mid inferior, basal inferior, apical anterior, mid anterior and basal anterior evans were not visualized. All other wall segments showed normal motion. Findings: Study Quality * Technically sub-optimal due to poor echocardiographic windows. ECG Findings * Normal sinus rhythm. Left Ventricle * LVEF 55%. * Normal LV chamber size, wall thickness and function. * Mild left ventricular diastolic dysfunction. * Atypical septal motion. Mitral Valve * Normal mitral valve structure. * No mitral stenosis. * No significant regurgitation. Tricuspid Valve * Tricuspid valve not well visualized. * No tricuspid regurgitation. * Estimated RA pressure is 3 mmHg. Pulmonic Valve * Pulmonic valve is not well visualized. * No pulmonic stenosis. * Mild pulmonic regurgitation. Pulmonary Artery * Pulmonary artery not well visualized. Aortic Valve * Aortic valve not well visualized. * Trace aortic regurgitation. * No aortic stenosis. Left Atrium * Normal left atrial size. Right Atrium * Normal right atrial size. Right Ventricle * Not well evaluated. Interatrial Septum * Interatrial septum not well evaluated. IVC * Normal IVC dimensions and inspiratory collapse. Pericardium * There is no pericardial effusion present. Aorta * Not well visualized. History Hypercholesteremia Family History of CAD Measurements: BP: 117/ 79 2D Normal Values IVSd: 1.20 cm 0.6 - 1.0 cm LVIDd: 4.60 cm 3.7 - 5.6 cm LVPWd: 1.00 cm 0.6 - 1.1 cm LVIDs: 3.30 cm 1.5 - 3.6 cm AO: 2.30 cm < 4.0 cm LA: 3.70 cm 2.0 - 4.0cm %FS: 28.30 cm >25 % LA volume: 51 Mitral Valve Peak E:.59 m/sec Peak A:1.12 m/sec E/A Ratio:0.5 Peak E' Lat Ej:7.99 cm/s Peak E' Med Ej:3.8 cm/s E/E' Lat Ratio:7.4 E/E' Med Ratio:15.6 Tricuspid Valve TV Regurg Peak Grad: 6.00mmHg TV Regurg Peak Ej: 1.19m/sec Updated by Courntey Ram on 08/18/2016 9:53:31 AM electronically signed on 08/18/2016 9:56:56 AM with status of Final Wall Motion [place]: 1=Normal, 2=Hypokinesis, 3=Akinesis, 4=Dyskinesis, 5=Aneurysmal, 6=Hyperkinetic, X=Not Visualized (Blank)=Missing
--- NOTE | 2016-08-18 11:59 | Electrocardiograph Report ---
[address] [place] [address] Test Date: 2016-08-18 Pat Name: Yennifer Guerrero Department: 111 Room: 2NE18 Gender: F Second Baker: : 1935 Requested By: Ted North Order Number: [id number] Reading MD: Yoel Ureña MD Measurements Intervals [place] Rate: 91 P: [place]: 0 QRS: -5 QRSD: 87 T: -78 QT: 391 QTc: 440 Interpretive Statements WANDERING ATRIAL PACEMAKER WITH PVC INFEROLATERAL AL, PROBABLY RECENT Electronically Signed On 08-18-2016 11:58:14 EDT by Yoel Ureña MD
--- NOTE | 2016-08-18 15:13 | Internal Med Progress Note ---
<Ofe Beatty - Last Filed: 08/18/16 15:09> Date of Encounter: 08/18/16 Time of Encounter: 08:30 - Assessment and plan (1) CAP (community acquired pneumonia) Current Visit: Yes Status: Acute Assessment and plan: - CXR on admission suggests possible right upper and lower lobes pneumonia. - Negative urine antigens for Strep. pneumoniae and Legionella - Sputum culture grew Staph. aureus sensitive to amoxicillin/clavulanate, ampicillin/sulbactam, oxacillin, TMP/SMZ and vancomycin. - One out of two blood cultures from 08/14 grew alarcon-sensitive S. aureus. Likely contamination given it's different from the one from sputum. - Two more blood cultures from 08/16 NGTD. - Repeated CXR today found increased patchy airspace opacities and diffuse interstitial opacites bilaterally, most likely multifocal pneumonia. - Echo is suboptimal with LVEF 55%, mild diastolic dysfunction but not all valves were well visualized. Our suspicion of endocarditis is low at this time given the positive blood culture of S. aureus is likely contamination and repeated blood cultures NGTD. - Will change from vancomycin to Augmentin. - Continue supplemental oxygen. (2) Acute respiratory failure with hypoxia Current Visit: Yes Status: Acute Assessment and plan: - Oxygen saturation 86% in ED. - Likely secondary to pneumonia. - Improved as her O2 sat is 9% on 3L via nasal cannula - Continue supplemental oxygen and monitoring. (3) Leukocytosis Current Visit: Yes Status: Acute Assessment and plan: - WBC stable at 14.6 today - Will switched to Augmentin. - Continue to monitor. Qualifiers: Leukocytosis type: unspecified Qualified Code(s): D72.829 - Elevated white blood cell count, unspecified (4) Hypertension Current Visit: Yes Status: Chronic Assessment and plan: - Blood pressure better controlled 123/67 this morning. - Continue current antihypertensive regimen. - Continue to monitor. Qualifiers: Hypertension type: essential hypertension Qualified Code(s): I10 - Essential (primary) hypertension (5) Diabetes type 2, uncontrolled Current Visit: Yes Status: Chronic Assessment and plan: - Newly diagnosed diabetes given Hgb A1C at 7.3. - Continue on basal and sliding scale insulin. - Will have patient follow up with her PCP after discharge for further outpatient management. Qualifiers: Diabetes mellitus complication status: with unspecified complications Diabetes mellitus extermination inspector insulin use: without longterm use Qualified Code( s): E11.8 - Type 2 diabetes mellitus with unspecified complications; E11.65 - Type 2 diabetes mellitus with hyperglycemia (6) DVT prophylaxis Current Visit: Yes Status: Acute Assessment and plan: - Continue Lovenox SQ. - Subjective Interval history: No significant event noted overnight. Patient was seen and examined this morning. Patient reports breathing well with minimal cough and no sputum production. Patient denies fever, chills, nausea, vomiting, diarrhea. - Constitutional Vitals: Temp Pulse Resp BP Pulse Ox 97.6 F 109 15 122/71 93 L 08/18/16 11:34 08/18/16 11:34 08/18/16 11:34 08/18/16 11:34 08/18/16 11:34 General appearance: Present: A&O X 3, pleasant, no acute distress, answers questions appropriately - Head Head exam: Present: atraumatic, normocephalic - Eye Eye exam: Present: PERRL, conjuntiva pink, sclera anicteric - Neck Neck exam general surgery: Present: supple, trachea midline. Absent: lymphadenopathy - Respiratory Respiratory exam: Present: rales (Bilateral lung bases). Absent: accessory muscle use, rhonchi, wheezes - Cardiovascular Cardiovascular exam: Present: +S1, +S2, tachycardia. Absent: diastolic murmur, gallop, rubs, systolic murmur - GI/Abdominal GI/Abdominal exam: Present: normal bowel sounds, soft, no peritoneal signs. Absent: distended, tenderness - Extremities Exam Extremities exam: Present: warm, radial pulses palpable and symetrical. Absent : calf tenderness, cyanotic, pedal edema - Neurological Exam Neurological exam: Present: CN II-XII intact, oriented X3, no focal deficits. Absent: pronater drift, facial droop, speech deficit - Skin Skin exam: Present: dry, intact. Absent: rash Internal Medicine: Result - Labs CBC & Chem 7: 08/18/16 05:32 08/18/16 05:32 Labs: Short CBC 08/18/16 Range/Units 05:32 WBC 14.6 H (4.3-11.1) K/mcL Hgb 12.8 (11.5-15.4) g/dL Hct 37.0 (35.3-44.9) % Plt Count 290 (140-400) K/mcL Neutrophils # 12.4 H (1.6-8.9) K/mcL BMP 08/18/16 05:32 Sodium 139 Potassium 3.6 Chloride 102 Carbon Dioxide 27 BUN 18 Creatinine 0.67 Glucose 124 H Calcium 8.3 L - Impressions Impressions Chest X-Ray 08/18/16 07:36 IMPRESSION: 1. Increased patchy airspace opacities and diffuse interstitial opacities bilaterally, most likely multifocal pneumonia given clinical findings. Edema could appear similar. 2. Questionable trace bilateral effusions. D/ / Bryan Hensley MD / Bryan Hensley MD Interpreting Provider: Bryan Hensley MD - VTE Documentation of Mechanical Device: Graduated compression elastic hosiery Consult Discharge Plan - Plan Referrals: Salo Sarabia Jr, MD [Primary Care Provider] - <[place] T - Last Filed: 08/18/16 15:28> - Assessment and plan (1) Acute respiratory failure with hypoxia Current Visit: Yes Status: Acute (2) Hypokalemia Current Visit: Yes Status: Resolved (3) Leukocytosis Current Visit: Yes Status: Acute Qualifiers: Leukocytosis type: unspecified Qualified Code(s): D72.829 - Elevated white blood cell count, unspecified (4) CAP (community acquired pneumonia) Current Visit: Yes Status: Acute (5) DVT prophylaxis Current Visit: Yes Status: Acute (6) Hyperglycemia Current Visit: Yes Status: Acute (7) Hypertension Current Visit: Yes Status: Chronic Qualifiers: Hypertension type: essential hypertension Qualified Code(s): I10 - Essential (primary) hypertension - Constitutional Vitals: Temp Pulse Resp BP Pulse Ox 97.6 F 109 15 122/71 93 L 08/18/16 11:34 08/18/16 11:34 08/18/16 11:34 08/18/16 11:34 08/18/16 11:34 Internal Medicine: Result - Labs CBC & Chem 7: 08/18/16 05:32 08/18/16 05:32 Labs: Short CBC 08/18/16 Range/Units 05:32 WBC 14.6 H (4.3-11.1) K/mcL Hgb 12.8 (11.5-15.4) g/dL Hct 37.0 (35.3-44.9) % Plt Count 290 (140-400) K/mcL Neutrophils # 12.4 H (1.6-8.9) K/mcL BMP 08/18/16 05:32 Sodium 139 Potassium 3.6 Chloride 102 Carbon Dioxide 27 BUN 18 Creatinine 0.67 Glucose 124 H Calcium 8.3 L - Impressions Impressions Chest X-Ray 08/18/16 07:36 IMPRESSION: 1. Increased patchy airspace opacities and diffuse interstitial opacities bilaterally, most likely multifocal pneumonia given clinical findings. Edema could appear similar. 2. Questionable trace bilateral effusions. D/ / Bryan Hensley MD / Bryan Hensley MD Interpreting Provider: Bryan Hensley MD - Attending Attestation I examined this patient and my medical decision-making was reviewed with the SPOOL CARRIER/PA/Advanced Practice Nurse/Resident Physician. I agree with the documented findings, disposition and treatment plan as described except to the extent set forth below. 80 Y/O F on admission for management of acute hypoxic respiratory failure secondary to MSSA Pneumonia, MSSA bacteremia Seen at bedside today with her daughters She reports remarkable improvement today, she is still O2 dependent She denies chest pain, dizziness or palpitations. Physical exam: VSS, BP is now controlled, occasional tachycardia, chest with LLL , RLL rhonchi Labs reviewed: Sputum and blood culture with MSSA, blood MSSA is alarcon-sensitive, while sputum MSSA is not, Leukocytosis with left shift, stable, not worse but not improving. CXR done today with multifocal pneumonia, possible edema. EKG with Wandering PCM, no A-fib. ECHO showed EF 55%, not all myocardial segments were visualized, normal LV size and function, mild LVDD, RV is no well visualized, no pulm HTN. No WMA on visible segments She received 4 days of IV Ceftriaxone and Azithromycin and 1 day of Vancomycin Will d/c Vanco and start on po Augmentin based n culture reports Rpt blood culture from 08/16 is preliminary negative Continue other current mgt She will need O2 qualification prior to discharge Rest of details as in residents documentation
[2016-08-18] MEDS: Aspirin Enteric Coated 81 MG Tablet PO SCH (17:14)
[2016-08-18] MEDS: Insulin DETEMIR 100 UNIT/ML X5UNITS SQ SCH (21:18)
[2016-08-19] MEDS: Ipratropium/Albuterol Neb 3 ML IH SCH ×4 (04:38→23:02)
[2016-08-19 06:11] LABS: Basophils % 0.2 %; Eosinophils # 0.3 K/mcL (0.0-0.6); Eosinophils % 1.7 %; Hematocrit 35.4 % (35.3-44.9); Immature Granulocytes % 1.1 % (0-4); Lymphocytes # 1.5 K/mcL (0.6-4.6); Lymphocytes % 9.9 %; Mean Corpuscular HGB Conc 33.9 g/dL (31.6-35.5); Mean Corpuscular Hemoglobin 29.6 pg (28.0-33.3); Mean Corpuscular Volume 87.4 fL (83.0-100.0); Mean Platelet Volume 10.7 fL (9.4-12.4); Monocytes # 0.9 K/mcL (0.0-1.3); Monocytes % 5.8 %; Neutrophils # 12.1 K/mcL (1.6-8.9); Platelet Count 302 K/mcL (140-400); Red Blood Count 4.05 M/mcL (3.82-4.97); Red Cell Distribution Width 13.2 % (11.5-14.5); Segmented Neutrophils % 81.3 %
[2016-08-19 06:37] LABS: BUN/Creatinine Ratio 35 (6-26); Blood Urea Nitrogen 24 mg/dL (7-20); Carbon Dioxide 28 mEq/L (19-29); Chloride 105 mEq/L (98-109); Glucose 62 mg/dL (70-99); Osmolality,Calculated 292 (280-300); Potassium 3.7 mEq/L (3.5-4.5); Sodium 140 mEq/L (136-145); eGFR For African Americans > 60 (> 60); eGFR For Non-African Americans > 60 (> 60)
[2016-08-19] MEDS: *HR* Enoxaparin 40 MG/0.4 ML SYRINGE SQ SCH (06:58)
[2016-08-19] MEDS: Metoprolol XL (24 HR) Succ 50 MG TAB.ER.24H PO SCH (08:58)
[2016-08-19] MEDS: Insulin LISPRO 300 UNITS/3 ML VIAL SQ SCH ×6 (08:58→21:26)
--- NOTE | 2016-08-19 09:07 | Internal Med Progress Note ---
<Ofe Beatty - Last Filed: 08/19/16 12:51> Date of Encounter: 08/19/16 Time of Encounter: 08:30 - Assessment and plan (1) CAP (community acquired pneumonia) Current Visit: Yes Status: Acute Assessment and plan: - CXR on admission suggests possible right upper and lower lobes pneumonia. - Negative urine antigens for Strep. pneumoniae and Legionella - Sputum culture grew Staph. aureus sensitive to amoxicillin/clavulanate, ampicillin/sulbactam, oxacillin, TMP/SMZ and vancomycin. - One out of two blood cultures from 08/14 grew alarcon-sensitive S. aureus. Likely contamination given it's different from the one from sputum. - Two more blood cultures from 08/16 NGTD. - Repeated CXR on 08/18 found increased patchy airspace opacities and diffuse interstitial opacites bilaterally, most likely multifocal pneumonia. - Echo is suboptimal with LVEF 55%, mild diastolic dysfunction but not all valves were well visualized. Our suspicion of endocarditis is low at this time given the positive blood culture of S. aureus is likely contamination and repeated blood cultures NGTD. - Continue Augmentin. - Continue supplemental oxygen. Will have qualification test for home oxygen before discharge. - Possible discharge tomorrow. (2) Acute respiratory failure with hypoxia Current Visit: Yes Status: Acute Assessment and plan: - Oxygen saturation 86% in ED. - Likely secondary to pneumonia. - Improved as her O2 sat is 95% on 3L via nasal cannula - Continue supplemental oxygen and monitoring. (3) Leukocytosis Current Visit: Yes Status: Acute Assessment and plan: - WBC stable at 14.8 today - Continue Augmentin. - Continue to monitor. Qualifiers: Leukocytosis type: unspecified Qualified Code(s): D72.829 - Elevated white blood cell count, unspecified (4) Hypertension Current Visit: Yes Status: Chronic Assessment and plan: - Blood pressure better controlled 140/83 this morning. - Continue current antihypertensive regimen. - Continue to monitor. Qualifiers: Hypertension type: essential hypertension Qualified Code(s): I10 - Essential (primary) hypertension (5) Diabetes type 2, uncontrolled Current Visit: Yes Status: Chronic Assessment and plan: - Newly diagnosed diabetes given Hgb A1C at 7.3. - Given hypoglycemia this morning, will decrease basal Levemir insulin to 5 mg qHS. - Continue sliding scale insulin. - Will have patient follow up with her PCP after discharge for further outpatient management. Qualifiers: Diabetes mellitus complication status: with unspecified complications Diabetes mellitus prison insulin use: without terminal gauger use Qualified Code( s): E11.8 - Type 2 diabetes mellitus with unspecified complications; E11.65 - Type 2 diabetes mellitus with hyperglycemia (6) DVT prophylaxis Current Visit: Yes Status: Acute Assessment and plan: - Continue Lovenox SQ. - Subjective Interval history: No significant event noted overnight. Patient was seen and examined this morning. Patient reports breathing well with few cough and no sputum production. Patient denies fever, chills, nausea, vomiting, diarrhea. - Constitutional Vitals: Temp Pulse Resp BP Pulse Ox 97.8 F 84 18 140/83 95 08/19/16 07:14 08/19/16 07:14 08/19/16 07:14 08/19/16 07:14 08/19/16 07:14 General appearance: Present: A&O X 3, pleasant, no acute distress, answers questions appropriately - Head Head exam: Present: atraumatic, normocephalic - Eye Eye exam: Present: PERRL, conjuntiva pink, sclera anicteric - Neck Neck exam general surgery: Present: supple, trachea midline. Absent: lymphadenopathy - Respiratory Respiratory exam: Present: rales (Bibasilar crackles, improved compared to yesterday.). Absent: accessory muscle use, rhonchi, wheezes - Cardiovascular Cardiovascular exam: Present: RRR, +S1, +S2. Absent: diastolic murmur, gallop, rubs, systolic murmur - GI/Abdominal GI/Abdominal exam: Present: normal bowel sounds, soft, no peritoneal signs. Absent: distended, tenderness - Extremities Exam Extremities exam: Present: warm, radial pulses palpable and symetrical. Absent : calf tenderness, cyanotic, pedal edema - Neurological Exam Neurological exam: Present: CN II-XII intact, oriented X3, no focal deficits. Absent: pronater drift, facial droop, speech deficit - Skin Skin exam: Present: dry, intact. Absent: rash Internal Medicine: Result - Labs CBC & Chem 7: 08/19/16 05:00 08/19/16 05:00 Labs: Short CBC 08/19/16 Range/Units 05:00 WBC 14.8 H (4.3-11.1) K/mcL Hgb 12.0 (11.5-15.4) g/dL Hct 35.4 (35.3-44.9) % Plt Count 302 (140-400) K/mcL Neutrophils # 12.1 H (1.6-8.9) K/mcL BMP 08/19/16 05:00 Sodium 140 Potassium 3.7 Chloride 105 Carbon Dioxide 28 BUN 24 H Creatinine 0.68 Glucose 62 L Calcium 8.0 L - VTE Documentation of Mechanical Device: Graduated compression elastic hosiery Consult Discharge Plan - Plan Referrals: Salo Sarabia Jr, MD [Primary Care Provider] - <[place] T - Last Filed: 08/19/16 15:48> - Assessment and plan (1) Acute respiratory failure with hypoxia Current Visit: Yes Status: Acute (2) Hypokalemia Current Visit: Yes Status: Resolved (3) Leukocytosis Current Visit: Yes Status: Acute Qualifiers: Leukocytosis type: unspecified Qualified Code(s): D72.829 - Elevated white blood cell count, unspecified (4) CAP (community acquired pneumonia) Current Visit: Yes Status: Acute (5) DVT prophylaxis Current Visit: Yes Status: Acute (6) Hyperglycemia Current Visit: Yes Status: Acute (7) Hypertension Current Visit: Yes Status: Chronic Qualifiers: Hypertension type: essential hypertension Qualified Code(s): I10 - Essential (primary) hypertension - Constitutional Vitals: Temp Pulse Resp BP Pulse Ox 98 F 94 18 109/52 95 08/19/16 11:20 08/19/16 11:20 08/19/16 11:20 08/19/16 11:20 08/19/16 11:20 Internal Medicine: Result - Labs CBC & Chem 7: 08/19/16 05:00 08/19/16 05:00 Labs: Short CBC 08/19/16 Range/Units 05:00 WBC 14.8 H (4.3-11.1) K/mcL Hgb 12.0 (11.5-15.4) g/dL Hct 35.4 (35.3-44.9) % Plt Count 302 (140-400) K/mcL Neutrophils # 12.1 H (1.6-8.9) K/mcL BMP 08/19/16 05:00 Sodium 140 Potassium 3.7 Chloride 105 Carbon Dioxide 28 BUN 24 H Creatinine 0.68 Glucose 62 L Calcium 8.0 L - Attending Attestation I examined this patient and my medical decision-making was reviewed with the [employer] ETCHER APPRENTICE/PA/Advanced Practice Nurse/Resident Physician. I agree with the documented findings, disposition and treatment plan as described except to the extent set forth below. 80 Y/O F on admission for management of acute hypoxic respiratory failure secondary to MSSA Pneumonia, MSSA bacteremia Seen at bedside today with her daughters She reports remarkable improvement today, she is still O2 dependent She denies chest pain, dizziness or palpitations. Physical exam: VSS, BP is now controlled, occasional tachycardia, chest is clearer to auscultation today than yesterday Labs reviewed: Stable leukocytosis Continue current management She will need O2 qualification prior to discharge, anticipate discharge a.m Rest of details as in residents documentation
[2016-08-19] MEDS: Aspirin Enteric Coated 81 MG Tablet PO SCH (17:10)
[2016-08-19] MEDS ORDERED: Insulin DETEMIR 100 UNIT/ML X5UNITS SQ SCH (21:00)
[2016-08-20] MEDS: Ipratropium/Albuterol Neb 3 ML IH SCH ×2 (04:03→10:10)
[2016-08-20 05:14] LABS: Basophils % 0.3 %; Eosinophils # 0.4 K/mcL (0.0-0.6); Eosinophils % 3.3 %; Hematocrit 31.7 % (35.3-44.9); Hemoglobin 10.7 g/dL (11.5-15.4); Immature Granulocytes % 0.7 % (0-4); Lymphocytes # 0.9 K/mcL (0.6-4.6); Lymphocytes % 7.1 %; Mean Corpuscular HGB Conc 33.8 g/dL (31.6-35.5); Mean Corpuscular Hemoglobin 29.6 pg (28.0-33.3); Mean Corpuscular Volume 87.6 fL (83.0-100.0); Mean Platelet Volume 10.8 fL (9.4-12.4); Monocytes # 0.8 K/mcL (0.0-1.3); Monocytes % 6.2 %; Neutrophils # 10.3 K/mcL (1.6-8.9); Nucleated Red Blood Cells 0.2 /100 WBC (0); Platelet Count 304 K/mcL (140-400); Red Blood Count 3.62 M/mcL (3.82-4.97); Red Cell Distribution Width 13.3 % (11.5-14.5); Segmented Neutrophils % 82.4 %
[2016-08-20] MEDS: *HR* Enoxaparin 40 MG/0.4 ML SYRINGE SQ SCH (06:17)
[2016-08-20 07:17] VITALS: BP 135/85
[2016-08-20] MEDS: Insulin LISPRO 300 UNITS/3 ML VIAL SQ SCH ×4 (08:35→13:36)
[2016-08-20] MEDS: Metoprolol XL (24 HR) Succ 50 MG TAB.ER.24H PO SCH (08:36)
--- NOTE | 2016-08-20 10:01 | Discharge Summary ---
<Ofe Beatty - Last Filed: 08/20/16 10:49> Date of Encounter: 08/20/16 Time of Encounter: 08:30 - Discharge Diagnosis (1) CAP (community acquired pneumonia) Priority: Primary Status: Acute (2) Acute respiratory failure with hypoxia Priority: Secondary Status: Acute (3) Leukocytosis Priority: Secondary Status: Acute Qualifiers: Leukocytosis type: unspecified Qualified Code(s): D72.829 - Elevated white blood cell count, unspecified (4) Hypertension Priority: Secondary Status: Chronic Qualifiers: Hypertension type: essential hypertension Qualified Code(s): I10 - Essential (primary) hypertension (5) Diabetes type 2, uncontrolled Priority: Secondary Status: Chronic Qualifiers: Diabetes mellitus complication status: with unspecified complications Diabetes mellitus termination clerk insulin use: without group home use Qualified Code( s): E11.8 - Type 2 diabetes mellitus with unspecified complications; E11.65 - Type 2 diabetes mellitus with hyperglycemia - Discharge Medications Prescriptions: Amoxicillin/Clavulanate [Augmentin] 875 mg PO BIDWM #17 tablet GuaiFENesin ER [Mucinex] 600 mg PO BID PRN #30 tbbp.12hr PRN Reason: Congestion Metformin HCl [Metformin HCl ER] 500 mg PO DAILY #30 [id number] Metoprolol XL (24 HR) Succ [Toprol Xl] 100 mg PO DAILY #30 tab.er.24h Home Medications: Aspirin [Lo-Dose Aspirin EC] 81 mg PO QPM 08/14/16 [History] Benzonatate [Tessalon] 100 mg PO TID 08/14/16 [History] Biotin 2,500 mcg PO DAILY 08/14/16 [History] Glucosamine HCl/Chondr Fajardo A Na [[facility] Glucosamine-Chondr Tablet] 1 tab PO DAILY [History] Lisinopril/Hydrochlorothiazide [Lisinopril-Hctz 20-25 mg Tab] 1 tab PO DAILY 04/22 [History] Multivit-Min/Iron/Folic/Lutein [Centrum Silver Women Tablet] 1 tab PO DAILY 04/22 [History] Naproxen 375 mg PO BID 08/14/16 [History] [place]-3/Dha/Epa/Fish Oil [Fish Oil 1,000 mg Softgel] 1,000 mg PO DAILY 08/14/16 [History] Amoxicillin/Clavulanate [Augmentin] 875 mg PO BIDWM #17 tablet 08/20/16 [Rx] GuaiFENesin ER [Mucinex] 600 mg PO BID PRN #30 tbbp.12hr 08/20/16 [Rx] Metformin HCl [Metformin HCl ER] 500 mg PO DAILY #30 [id number] 08/20/16 [Rx] Metoprolol XL (24 HR) Succ [Toprol Xl] 100 mg PO DAILY #30 tab.er.24h 08/20/16 [ Rx] Allergies/Adverse Reactions: Allergies No Known Allergies Allergy (Verified 08/14/16 08:02) Procedures/tests Complete & Pending: Procedures Performed prior 72 hours Category Date Time Status ECG 12 lead ECG [ECG] Routine Y 08/18/16 10:39 Completed EV echocardiogram Routine Y 08/17/16 11:15 Completed Date of admission: 08/14/16 16:35 Primary care physician: Salo Sarabia Jr, MD Consults: 08/15/16 19:24 Consult to Television Schedule Coordinator [CONS] Routine Comment: 08/17/16 08:14 Consult to Occupational Therapy [CONS] Routine Comment: Evaluate, develop and implement POC Consult to Physical Therapy [CONS] Routine Comment: Evaluate, develop and implement POC 08/19/16 16:38 Consult to Invasive Line Access Team [CONS] Routine Reason for Consult: LIMITED IV ACCESS Line Type: EPIV Discharging clinician: Ofe Beatty Anticipated date of discharge: 08/20/16 - Patient Status Disposition: Home, Self-Care Condition: Fair Functional capacity at discharge: independent ambulation Overall status at discharge: patient is progressing back to baseline - Discharge Instructions Instructions: Metoprolol (By mouth), Guaifenesin (By mouth), Amoxicillin (By mouth), Metformin (By mouth), Diabetes Mellitus Type 2 in Adults (DC), Chronic Hypertension (DC), Pneumonia (DC) Follow Up With: Salo Sarabia Jr, MD [Primary Care Provider] - 08/24/16 9:45 am ( Within a week after discharge) Additional Instructions: Please take your Augmentin 875 mg by mouth twice a day for 8 more days to finish total 14-day course of antibiotic therapy. Please take metformin 500 mg by mouth daily for your newly diagnosed diabetes. Please increase your Toprol XL to 100 mg by mouth daily. Please follow up with Dr. Sarabia within a week after discharge regarding your community acquired pneumonia, hypertension and newly diagnosed diabetes. - Diet and Activity Activity: increase activity as tolerated Diet: diabetic diet Hospital course: Ms. Guerrero is a 80 year old female with PMH of HTN and hyperlipidemia who presented with cough and congestion and was noted to have O2 sat 86% in ED. CXR suggests pneumonia in the right upper lobe and right lower lobe and patient was admitted on 08/14 for acute respiratory failure with hypoxia secondary to community acquired pneumonia. Patient was initially started on cefriaxone and azithromycin and patient improved clinically since. Patient was then switch to vancomycin on 08/17 when sputum culture and one of two blood cultures on admission grew GPC likely Staph. Patient is eventually switched to Augmentin with the final culture results showed different strain of S. aureus from sputum culture and that blood culture, which is likely contamination. Repeated blood cultures NGTD. Echo is suboptimal with LVEF 55%, mild diastolic dysfunction but not all valves were well visualized. Patient is also noted to have new diagnosed diabetes with Hgb A1C of 7.3. Patient received insulin during her hospital stay and will be discharged home with metformin 500 mg PO daily. Patient's Toprol XL is also increased to 100 mg daily for hypertension. Patient' s respiratory status improves clinically and remains afebrile throughout her hospital stay. And patient's WBC started to normalized on 08/20. Patient will be discharged home with Augmentin 875 mg by mouth twice a day for 8 more days to finish total 14-day course of antibiotic therapy. Patient will have follow-up appointment with her PCP Dr. Sarabia within a week regarding her pneumonia, hypertension and newly diagnosed diabetes. Patient is also instructed to see podiatry and eye doctors once a year for her newly diagnosed diabetes. - Time Spent with Patient Total time spent providing and/or coordinating discharge services: Greater than 30 minutes - Constitutional Vitals: Temp Pulse Resp BP Pulse Ox 98.3 F 81 16 135/85 94 L 08/20/16 07:11 08/20/16 07:11 08/20/16 07:11 08/20/16 07:11 08/20/16 09:29 General appearance: Present: A&O X 3, pleasant, no acute distress, answers questions appropriately - Head Head exam: Present: atraumatic, normocephalic - Eye Eye exam: Present: PERRL, conjuntiva pink, sclera anicteric - Neck Neck exam general surgery: Present: supple, trachea midline. Absent: lymphadenopathy - Respiratory Respiratory exam: Present: rales (Mild bibasiliar crackles, much better compared to yesterday.). Absent: accessory muscle use, rhonchi, wheezes - Cardiovascular Cardiovascular exam: Present: RRR, +S1, +S2. Absent: diastolic murmur, gallop, rubs, systolic murmur - GI/Abdominal GI/Abdominal exam: Present: normal bowel sounds, soft, no peritoneal signs. Absent: distended, tenderness - Extremities Exam Extremities exam: Present: warm, radial pulses palpable and symetrical. Absent : calf tenderness, cyanotic, pedal edema - Neurological Exam Neurological exam: Present: CN II-XII intact, oriented X3, no focal deficits. Absent: pronater drift, facial droop, speech deficit - Skin Skin exam: Present: dry, intact - VTE Documentation of Mechanical Device: Graduated compression elastic hosiery <Ted North T - Last Filed: 08/20/16 11:56> - Discharge Diagnosis (1) Acute respiratory failure with hypoxia Status: Acute (2) Hypokalemia Status: Resolved (3) Leukocytosis Status: Acute Qualifiers: Leukocytosis type: unspecified Qualified Code(s): D72.829 - Elevated white blood cell count, unspecified (4) CAP (community acquired pneumonia) Status: Acute (5) DVT prophylaxis Status: Acute (6) Hyperglycemia Status: Acute (7) Hypertension Status: Chronic Qualifiers: Hypertension type: essential hypertension Qualified Code(s): I10 - Essential (primary) hypertension Procedures/tests Complete & Pending: Procedures Performed prior 72 hours Category Date Time Status ECG 12 lead ECG [ECG] Routine Y 08/18/16 10:39 Completed EV echocardiogram Routine Y 08/17/16 11:15 Completed Date of admission: 08/14/16 16:35 Primary care physician: Salo Sarabia Jr, MD Consults: 08/15/16 19:24 Consult to Television Schedule Coordinator [CONS] Routine Comment: 08/17/16 08:14 Consult to Occupational Therapy [CONS] Routine Comment: Evaluate, develop and implement POC Consult to Physical Therapy [CONS] Routine Comment: Evaluate, develop and implement POC 08/19/16 16:38 Consult to Invasive Line Access Team [CONS] Routine Reason for Consult: LIMITED IV ACCESS Line Type: EPIV Hospital course: Ms. Guerrero is a 80 year old female - Time Spent with Patient Total time spent providing and/or coordinating discharge services: - Constitutional Vitals: Temp Pulse Resp BP Pulse Ox 98.3 F 81 16 135/85 94 L 08/20/16 07:11 08/20/16 07:11 08/20/16 10:11 08/20/16 07:11 08/20/16 10:11 - Attending Attestation I examined this patient and my medical decision-making was reviewed with the LEAD PROJECT MANAGER/PA/Advanced Practice Nurse/Resident Physician. I agree with the documented findings, disposition and treatment plan as described except to the extent set forth below. 80 Y/O F admitted for management of acute hypoxic respiratory failure secondary to MSSA Pneumonia, MSSA bacteremia Seen at bedside today with her daughters She reports remarkable improvement today, she is still O2 dependent Leukocytosis is improving, chest exam reveals better aeration D/C home on home O2, a/b and metformin Educated on new diagnosis of DM at bedside Follow up with PCP
--- NOTE | 2016-08-20 10:43 | Physician Discharge Referral ---
Home Health/Hosp Referral Info Transfer to: Home Health Attending Provider: Dr. North Provider in Charge Post Discharge: PCP - Diagnosis (1) CAP (community acquired pneumonia) Priority: Primary Status: Acute (2) Acute respiratory failure with hypoxia Priority: Secondary Status: Acute (3) Leukocytosis Priority: Secondary Status: Acute (4) Hypertension Priority: Secondary Status: Chronic (5) Diabetes type 2, uncontrolled Priority: Secondary Status: Chronic - Respiratory Orders Oxygen / L per min (3 L NC continuous) Smoking Cessation: Smoking cessation has been advised. For more information, call the [place] Tobacco Quit Line at 3-158-FZOQ-NOW. - Diet/Nutrition Diet/Nutrition Orders: No Concentrated Sweets (Diabetes diet) - Activity Activity Orders: Walker - Services Needed Following services are medically necessary services: Nursing, Occupational Therapy - Transfer Medications Prescriptions: Amoxicillin/Clavulanate [Augmentin] 875 mg PO BIDWM #17 tablet GuaiFENesin ER [Mucinex] 600 mg PO BID PRN #30 tbbp.12hr PRN Reason: Congestion Metformin HCl [Metformin HCl ER] 500 mg PO DAILY #30 [id number] Metoprolol XL (24 HR) Succ [Toprol Xl] 100 mg PO DAILY #30 tab.er.24h Home Medications: Aspirin [Lo-Dose Aspirin EC] 81 mg PO QPM 08/14/16 [History] Benzonatate [Tessalon] 100 mg PO TID 08/14/16 [History] Biotin 2,500 mcg PO DAILY 08/14/16 [History] Glucosamine HCl/Chondr Fajardo A Na [[facility] Glucosamine-Chondr Tablet] 1 tab PO DAILY [History] Lisinopril/Hydrochlorothiazide [Lisinopril-Hctz 20-25 mg Tab] 1 tab PO DAILY 04/22 [History] Multivit-Min/Iron/Folic/Lutein [Centrum Silver Women Tablet] 1 tab PO DAILY 04/22 [History] Naproxen 375 mg PO BID 08/14/16 [History] [place]-3/Dha/Epa/Fish Oil [Fish Oil 1,000 mg Softgel] 1,000 mg PO DAILY 08/14/16 [History] Amoxicillin/Clavulanate [Augmentin] 875 mg PO BIDWM #17 tablet 08/20/16 [Rx] GuaiFENesin ER [Mucinex] 600 mg PO BID PRN #30 tbbp.12hr 08/20/16 [Rx] Metformin HCl [Metformin HCl ER] 500 mg PO DAILY #30 [id number] 08/20/16 [Rx] Metoprolol XL (24 HR) Succ [Toprol Xl] 100 mg PO DAILY #30 tab.er.24h 08/20/16 [ Rx] Allergies/Adverse Reactions: Allergies No Known Allergies Allergy (Verified 08/14/16 08:02) Certification: Further, I certify that my clinical findings support that this patient is homebound (i.e. absences from home require considerable and taxing effort and are for medical reasons or yazdanism services or infrequently or short duration when for other reasons) because: Homebound Reason: Patient requires assistance of a person or device to safely leave home Attestation: My signature below is to certify that this patient is under my care and that I, or nurse practitioner, or a physician's faculty i on call medical assistant working with me, has a face-to -face encounter with this patient.
== END 2016-08-20 16:05 | disposition home or self-care (01) | DRG 177 ==
LOC: 2NENU 07:52 → EMEROO 07:52 → 2NENU 11:25 → SUATTDRO 16:35
PROVIDERS: ADMIT Internal Medicine; ATTEND Internal Medicine